=== PATIENT | female | born 1950 | race Caucasian/White ===

== ENCOUNTER → 2017-11-04 | Outpatient (CLI) | payer MEDICARE ==
--- NOTE | 2017-11-04 12:19 | Diagnostic Imaging Report ---
CLINICAL INDICATION: Patient with goiter felt by Doctor. COMPARISONS: None. FINDINGS: THYROID NODULES: There is a 9 mm hypoechoic nodule within the isthmus. This demonstrates no significant central Doppler flow. THYROID GLAND: Besides the thyroid nodule, the thyroid gland parenchyma is heterogeneous with a slightly lobulated appearance. There is normal appearing central Doppler flow involving the thyroid gland. The right lobe measures 4.0 cm x 2.8 cm x 2.0 cm and the left lobe measures 3.9 cm x 1.5 cm x 1.0 cm in their three dimensions. ISTHMUS: The isthmus is unremarkable and measures 4.5 mm in thickness. Impression: 1: There is a 9 mm hypoechoic nodule within the isthmus. 2: Nonspecific heterogeneous and slightly lobulated appearing thyroid gland is seen. Dictated by: Dictated on workstation # [id number]
--- NOTE | 2017-11-04 16:16 | Diagnostic Imaging Report ---
INDICATION: Routine screening. 3D digital tomography, bilateral COMPARISON: The patient's prior mammograms are not available for comparison. TECHNIQUE: Bilateral 3d digital tomographic views were obtained with [employer] and reviewed on a [employer] workstation. In addition, CAD - computer aided detection was utilized. FINDINGS: Both breasts are heterogeneously dense, limiting the sensitivity of mammography. There is a focal asymmetry in the right breast retroareolar region at the nipple line. No corresponding density on the MLO view is seen but additional views are recommended. Left breast is heterogeneous but no discrete mass is seen. There are benign calcifications bilaterally. The axillae are unremarkable. IMPRESSION: ACR BI-RADS Category 0. Incomplete. (Needs additional imaging evaluation). Right breast density. Additional views including spot compression and rolled CC views are recommended for further evaluation. Note: At least 10% of breast cancer is not imaged by mammography. Dictated by: Dictated on workstation # [id number]
== END ==
LOC: RAD 11:07
PROVIDERS: ATTEND Family Medicine
DX: Z12.31 Encounter for screening mammogram for malignant neoplasm of breast (principal); E04.2 Nontoxic multinodular goiter
CPT/HCPCS: 76536; 77067

== ENCOUNTER → 2017-11-23 | Outpatient (CLI) | payer MEDICARE ==
--- NOTE | 2017-11-23 12:16 | Diagnostic Imaging Report ---
INDICATION: Right breast density. The patient presents for additional views. COMPARISON: 11/04/2017. TECHNIQUE: 2D and 3D unilateral right diagnostic mammography was performed including spot compression CC, rolled CC, and 90 degree lateral views. The current study was also evaluated with a Computer Aided Detection (CAD) system. FINDINGS: The additional views fail to demonstrate a discrete mass. The area of density most likely represented superimposed tissue. No suspicious calcifications are seen. IMPRESSION: No suspicious abnormality is identified after additional views. Even so, sonographic interrogation of the retroareolar right breast is recommended for further evaluation. ACR BI-RADS Category 0: Incomplete. (Needs additional imaging evaluation). Result letter will be mailed to the patient. Note: At least 10% of breast cancer is not imaged by mammography. Dictated by: Dictated on workstation # [id number]
--- NOTE | 2017-11-23 12:24 | Diagnostic Imaging Report ---
INDICATION: Right breast density. This study is performed for further evaluation. COMPARISON: Correlation is made with the diagnostic mammogram from earlier the same day. FINDINGS: Sonographic interrogation of the retroareolar right breast was performed. No solid or cystic mass is seen. No sonographic abnormality is identified. IMPRESSION: No sonographic abnormality is seen. The patient may return to routine annual screening mammography. ACR BI-RADS Category 1: Negative. Dictated by: Dictated on workstation # [id number]
== END ==
LOC: RAD 08:34
PROVIDERS: ATTEND Nurse Practitioner Family
DX: R92.2 Inconclusive mammogram (principal)

== ENCOUNTER → 2018-05-22 | Outpatient (CLI) | payer MEDICARE, OTHER ==
--- NOTE | 2018-05-22 11:39 | Diagnostic Imaging Report ---
PROCEDURE: US Thyroid. TECHNIQUE: Multiple real-time grayscale images were obtained of the thyroid in various projections. INDICATION: Thyroid nodule, follow-up. Correlation is made with prior thyroid ultrasound from 11/04/2017. FINDINGS: Right lobe of the thyroid measures 4.0 x 2.2 x 1.8 cm and the left lobe measures 3.2 x 2.2 x 0.8 cm. Both lobes again demonstrate diffuse parenchymal heterogeneity. A circumscribed ovoid nodule in the isthmus appears to be stable approximately 9 mm x 4 mm. Tiny subcentimeter hyperechoic focus in the lower pole right lobe is seen measuring 3-4 mm. This may represent a calcification. Circumscribed hypoechoic nodule in the lower pole left lobe is noted measuring 3-4 mm in size. No dominant mass is identified. IMPRESSION: 1. Stable ovoid nodule in the isthmus of the thyroid since study from 11/04/2017. There are tiny subcentimeter nodules in the lower pole of both lobes as well. No dominant thyroid mass is detected. Dictated by: Dictated on workstation # [id number]
[2018-05-22 12:02] LABS: FREE T4 (FREE THYROXINE) 1.08 NG/DL (0.70-1.48)
== END ==
LOC: RAD 10:32
PROVIDERS: ATTEND Family Medicine
DX: E04.1 Nontoxic single thyroid nodule (principal)
CPT/HCPCS: 36415; 76536; 84439; 84443

== ENCOUNTER → 2019-03-28 | Outpatient (CLI) | payer MEDICARE, OTHER ==
--- NOTE | 2019-03-28 11:32 | Diagnostic Imaging Report ---
INDICATION: Routine screening. COMPARISON: 11/04/2017. TECHNIQUE: 2D and 3D bilateral screening mammography was performed with CAD. FINDINGS: Both breasts are heterogeneously dense, limiting the sensitivity of mammography. The asymmetric density in the retroareolar right breast noted previously is stable. No new mass or malignant appearing microcalcifications are seen. There are benign calcifications noted. The axillae are unremarkable. IMPRESSION: No mammographic features suspicious for malignancy are identified. ACR BI-RADS Category 2: Benign findings. Result letter will be mailed to the patient. Note: At least 10% of breast cancer is not imaged by mammography. Dictated by: Dictated on workstation # [id number]
== END ==
LOC: RAD 09:27
PROVIDERS: ATTEND Nurse Practitioner Family
DX: Z12.31 Encounter for screening mammogram for malignant neoplasm of breast (principal)
CPT/HCPCS: 77067

== ENCOUNTER → 2019-05-30 | Outpatient (CLI) | payer MEDICARE, OTHER ==
--- NOTE | 2019-05-30 09:52 | Diagnostic Imaging Report ---
PROCEDURE: US Thyroid. TECHNIQUE: Multiple real-time grayscale images were obtained of the thyroid in various projections. INDICATION: Thyroid nodule. COMPARISON: Compared 05/22/2018. FINDINGS: Both lobes of the thyroid parenchyma are diffusely heterogeneous. The right lobe measuring 4.5 x 2.3 x 2.2 cm, the left lobe 4.7 x 2.8 x 2.3 cm. A 1 cm isthmic nodule circumscribed, well-defined and hypoechoic showed continued stability. RIGHT LOBE: A solid hypoechoic somewhat lobulated mass in the upper pole of the right lobe is wider than tall and measured 1.6 x 1.9 x 1.1 cm. It showed no appreciable calcifications. It cannot be discretely visualized on the prior but could conceivably have been obscured by the substantial generalized heterogeneity of the gland itself. Within the left lobe, there is a 6 mm subcentimeter well-defined hyperechoic benign nodule unchanged. IMPRESSION: 1. Newly appreciable mass mid to upper pole right lobe laterally is considered a TI-RADS level 4 lesion and as it measures just over 1.5 cm, consideration for sonographic biopsy suggested. This is a moderately suspicious lesion. 2. Additional stable benign-appearing findings noted as well. Dictated by: Dictated on workstation # [id number]
== END ==
LOC: RAD 09:03
PROVIDERS: ATTEND Nurse Practitioner Family
DX: E04.1 Nontoxic single thyroid nodule (principal); R91.8 Other nonspecific abnormal finding of lung field
CPT/HCPCS: 76536

== ENCOUNTER → 2019-06-13 | Outpatient (CLI) | payer MEDICARE, OTHER ==
[~2019-06-13] MED LIST: LIDOCAINE 1% INJ 20 ML 20 ML VIAL INJ ONE
--- NOTE | 2019-06-13 13:03 | Diagnostic Imaging Report ---
INDICATION: Right thyroid nodule. The patient presents for ultrasound-guided fine-needle aspiration. TECHNIQUE: The patient was brought to the procedure room and placed on the bed in the supine position. Ultrasound imaging of the right neck was performed to evaluate for an appropriate entry site. The right neck was then prepped and draped in the usual sterile fashion. A small amount of 1% lidocaine was utilized for local anesthesia. A total of four passes was made through the hypoechoic solid nodule in the upper pole right lobe of the thyroid utilizing 25-gauge needles. Fine-needle aspiration technique was utilized. The needle was removed and hemostasis was obtained using manual compression. The patient tolerated the procedure well and left the Department in stable condition. IMPRESSION: Successful ultrasound-guided fine-needle aspiration of the hypoechoic solid nodule in the upper pole right lobe of the thyroid. Pathology results are currently pending. Dictated by: Dictated on workstation # [id number]
== END ==
LOC: RAD 10:14
PROVIDERS: ATTEND Otolaryngology Otolaryngology/Facial Plastic Surgery
DX: E04.1 Nontoxic single thyroid nodule (principal)
CPT/HCPCS: 88173; 88305

== ENCOUNTER → 2019-11-09 | Outpatient (CLI) | payer MEDICARE, OTHER | LOC: LAB 13:21 | PROVIDERS: ATTEND Nurse Practitioner Family | DX: R05 Cough (principal) | CPT/HCPCS: 36415 ==

== ENCOUNTER → 2021-11-17 | Outpatient (CLI) | payer MEDICARE, OTHER ==
--- NOTE | 2021-11-17 14:16 | Diagnostic Imaging Report ---
INDICATION: 3D bilateral screening mammogram with cad. CAD is utilized. The current study was also evaluated with a Computer Aided Detection (CAD) system. This study was compared to the prior exam of 03/28/2019. At this time there are no current complaints. The current study was also evaluated with a Computer Aided Detection (CAD) system. FINDINGS: The fibroglandular tissue in both breasts is heterogeneously dense. This does limit the sensitivity of this exam. Overall, there does not appear to have been any significant change when compared to the prior study. No primary or secondary sign of malignancy is noted. IMPRESSION: 1. There is no radiographic evidence for malignancy. 2. The patient should have her annual bilateral screening mammogram on schedule in November 2022. ACR BI-RADS Category 1: Negative. Result letter will be mailed to the patient. Note: At least 10% of breast cancer is not imaged by mammography. Dictated by: Dictated on workstation # [id number]
--- NOTE | 2021-11-17 14:20 | Diagnostic Imaging Report ---
INDICATION: Postmenopausal. COMPARISON: None. FINDINGS: The bone mineral density of the spine, the hips, and the femoral necks was measured. There are no prior studies available for comparison. The total T-score for the spine is -2.4. This does suggest borderline osteoporosis. The T-score for the left hip is -1.6 and for the right hip -1.1. The T-score for the left femoral neck is -1.9 and for the right -1.2. These values fall within the range of osteopenia. IMPRESSION: 1. There is borderline osteoporosis of the spine. 2. The bone mineral density of the hips and femoral necks indicates osteopenia. AP Spine L1-L4: [BMD (g/cm2): 0.909] [T-Score: -2.4] [Z-Score: -1.9] [BMD Previous: NA] [BMD % Change: NA] LT Hip Neck: [BMD (g/cm2): 0.733] [T-Score: -1.9] [Z-Score: -1.0] LT Hip Total: [BMD (g/cm2):0.811] [T-Score:-1.6] [Z-Score: -0.9] [BMD Previous: NA] [BMD % Change: NA] RT Hip Neck: [BMD (g/cm2):0.873] [T-Score:-1.2] [Z-Score:-0.3] RT Hip Total: [BMD (g/cm2):0.872] [T-score:-1.1] [Z-Score:-0.5] [BMD Previous:NA] [BMD % Change:NA] *Indicates significant change from prior examination based on 95% confidence level. World Health Organization criteria for BMD interpretation classify patients as Normal (T-score at or above -1.0), Osteopenic (T-score between -1.0 and -2.5) or Osteoporotic (T-score at or below -2.5). LIMITATIONS AND MODIFICATION: None. FRACTURE RISK (FRAX SCORE): The ten year probability of (%): Major Osteoporotic Fracture: [16.0] Hip Fracture: [2.6] IMPRESSION: 1. See below National Osteoporosis Foundation guidelines on when to potentially initiate pharmacologic therapy. Based on the National Osteoporosis Foundation Guidelines, pharmacologic treatment should be initiated in any of the following, unless clinical conditions suggest otherwise: * Any patient with prior fragility fracture of the hip or vertebrae. A spine fracture indicates 5X risk for subsequent spine fracture and 2X risk for subsequent hip fracture. * Osteoporosis (T-score <-2.5). * Postmenopausal women and men age 50 and older with low bone mass/osteopenia (T-score between -1.0 and -2.5) by DXA and 10-year major osteoporotic fracture greater than 20% or a 10-year probability of hip fracture greater than 3%. These fracture risks are supplied above in the FRAX score, if applicable. * Clinician judgement and/or patient preferences may indicate treatment for people with 10-year fracture probabilities above or below these levels. Dictated by: Dictated on workstation # [id number]
== END ==
LOC: RAD 10:00
PROVIDERS: ATTEND Family Medicine
DX: Z12.31 Encounter for screening mammogram for malignant neoplasm of breast (principal); Z78.0 Asymptomatic menopausal state; M81.0 Age-related osteoporosis without current pathological fracture
CPT/HCPCS: 77063; 77067; 77080

== ENCOUNTER 2022-08-28 21:59 | Emergency (ER) | payer MEDICARE, OTHER ==
[~2022-08-28] VITALS: Ht 165.1 cm; Wt 99.7 kg
--- NOTE | 2022-08-28 22:22 | ED Syncope ---
General Stated Complaint: SYNCOPAL EPISODE Source of Information: Patient Exam Limitations: No Limitations History of Present Illness Date Seen by Provider: Aug 28, 2022 Time Seen by Provider: 22:08 Initial Comments Patient is a 72yo female who presents to the ER with a complaint of syncopal episode. She had been out a dinner with her and a girlfriend, sitting at a high top table for a couple of hours without any support of her feet. She had had a large meal and a couple of glasses of wine (which she is unused to). She started feeling clammy and a little nauseated, looked at her and stated she felt dizzy and apparently slumped over. He and her friend caught her, she did not fall from the stool. She states she was out very briefly and when she came round - she vomited. She denied chest pain, headache, SOB. SHe has had some URI symptoms the last few days and started amoxicillin yesterday (500mg TID) for a left OM. She states she feels a little "off" still. She did mention to YONAS Malik (her ED nurse) prior to my seeing her that at one point she had a little left shoulder discomfort (no longer present). Only PMH is thyroid disorder. Non smoker. No personal history of CAD. Timing/Prior Episodes: Single Episode Today Symptoms Prior to Episode: Confusion, Lightheadedness, Nausea Precipitating Factors: Sitting Loss of Consciousness: Brief (Seconds) Current Symptoms: Back to Normal, Diaphoresis, Dizziness, Nausea (vomited) Allergies and Home Medications Allergies Coded Allergies: codeine (Unverified Allergy, Unknown, 11/17/21) Patient Home Medication List Home Medication List Reviewed: Yes Review of Systems Constitutional: see HPI EENTM: ear pain (left) Respiratory: no symptoms reported Cardiovascular: syncope Gastrointestinal: nausea, vomiting Genitourinary: no symptoms reported Musculoskeletal: no symptoms reported Skin: no symptoms reported Psychiatric/Neurological: Denies Headache, Denies Paresthesia, Denies Seizure All Other Systems Reviewed Negative Unless Noted: Yes Physical Exam Vital Signs Vital Signs - First Documented 08/28/22 22:01 Temp 36.5 Pulse 88 Resp 16 B/P (MAP) 166/74 (104) Pulse Ox 100 O2 Delivery Room Air Capillary Refill : Height, Weight, BMI Height: '" Weight: lbs. oz. kg; BMI Method: General Appearance: No Apparent Distress, WD/WN, Obese (mildly) HEENT: PERRL/EOMI, Pharynx Normal, Other (left ear canal erythematous - TM appears normal; RT TM normal) Neck: Full Range of Motion, Normal Inspection, Supple Cardiovascular: Regular Rate, Rhythm, Normal Peripheral Pulses Respiratory: Lungs Clear, Normal Breath Sounds, No Accessory Muscle Use, No Respiratory Distress Gastrointestinal: Non Tender, Soft Extremities: Normal Capillary Refill, Normal Inspection, Normal Range of Motion, No Pedal Edema Neurologic/Psychiatric: Alert, Oriented x3, No Motor/Sensory Deficits, Normal 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, 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 Norm as 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; No Abnormal Cerebellar Tests; Other (neg [place], No pronator drift; normal F-N) Cranial Nerves: Normal Hearing, Normal Speech, PERRL Coordination/Gait: Normal Finger to Nose, Negative Romberg's Sign Motor/Sensory: No Motor Deficit, No Sensory Deficit, No Pronator Drift Skin: Normal Color, Warm/Dry Progress/Results/Core Measures Results/Orders Lab Results Laboratory Tests Test 08/28/22 22:08 08/28/22 22:27 Range/Units White Blood Count 11.1 H 4.3-11.0 10^3/uL Red Blood Count 4.65 3.80-5.11 10^6/uL Hemoglobin 13.8 11.5-16.0 g/dL Hematocrit 42 35-52 % Mean Corpuscular Volume 90 80-99 fL Mean Corpuscular Hemoglobin 30 25-34 pg Mean Corpuscular Hemoglobin Concent 33 32-36 g/dL Red Cell Distribution Width 13.8 10.0-14.5 % Platelet Count 276 130-400 10^3/uL Mean Platelet Volume 11.1 9.0-12.2 fL Immature Granulocyte % (Auto) 1 % Neutrophils (%) (Auto) 57 42-75 % Lymphocytes (%) (Auto) 34 12-44 % Monocytes (%) (Auto) 8 0-12 % Eosinophils (%) (Auto) 1 0-10 % Basophils (%) (Auto) 0 0-10 % Neutrophils # (Auto) 6.3 1.8-7.8 10^3/uL Lymphocytes # (Auto) 3.7 1.0-4.0 10^3/uL Monocytes # (Auto) 0.8 0.0-1.0 10^3/uL Eosinophils # (Auto) 0.1 0.0-0.3 10^3/uL Basophils # (Auto) 0.0 0.0-0.1 10^3/uL Immature Granulocyte # (Auto) 0.1 0.0-0.1 10^3/uL Sodium Level 140 135-145 MMOL/L Potassium Level 3.4 L 3.6-5.0 MMOL/L Chloride Level 106 98-107 MMOL/L Carbon Dioxide Level 21 21-32 MMOL/L Anion Gap 13 5-14 MMOL/L Blood Urea Nitrogen 16 7-18 MG/DL Creatinine 0.77 0.60-1.30 MG/DL Estimat Glomerular Filtration Rate 83 BUN/Creatinine Ratio 21 Glucose Level 174 H 70-105 MG/DL Calcium Level 8.9 8.5-10.1 MG/DL Magnesium Level 1.8 1.6-2.4 MG/DL Troponin I < 0.028 <0.028 NG/ML SARS-CoV-2 RNA (RT-PCR) Not Detected Not Detecte My Orders Orders - ZULEIMA ZUNIGA MD Ed Iv/Invasive Line Start (08/28/22 22:15) Cbc With Automated Diff (08/28/22 22:15) Basic Metabolic Panel (08/28/22 22:15) Magnesium (08/28/22 22:15) Troponin I [place] (08/28/22 22:15) Chest 1 View, Ap/Pa Only (08/28/22 22:15) Covid 19 Inhouse Test (08/28/22 22:15) Isolation Central Supply Req (08/28/22 22:15) Ekg Tracing (08/28/22 22:15) Vital Signs/I&O 08/28/22 22:01 Temp 36.5 Pulse 88 Resp 16 B/P (MAP) 166/74 (104) Pulse Ox 100 O2 Delivery Room Air Progress Progress Note : Time: 23:19 Progress Note Patient seen and evaluated, 72-year-old with syncope. Evaluation today includes physical exam, CBC, chemistry, mag, troponin, EKG and chest x-ray. On physical exam the patient is awake alert, oriented no acute distress. Nonfocal neurologic exam. Heart is regular, lungs are clear. She has recently been treated for left-sided otitis, the canal itself is a little erythematous but the tympanic membrane looks good, no effusion or distention of the tympanic membrane. No submandibular or infra-auricular lymphadenopathy. No significant lower extremity edema. She does have the occasional PVC on telemetry. EKG is normal sinus rhythm at 86 beats a minute with no ST segment elevation or depression or interval concerns. Differential diagnosis based on history and physical, vasovagal syncope, arrhythmia, dehydration. Labs are reviewed, CBC is normal, chemistry shows mildly elevated blood sugar otherwise normal. Troponin undetectable magnesium within normal range. Chest x-ray no focal infiltrates or mediastinal concerns. Patient has been monitored throughout her stay here in the emergency department. Her daughter is the nurse practitioner for Dr. Guerin. She will follow up on Tuesday as an outpatient for a ZIO patch, echo and stress. Initial ECG Impression Date: Aug 28, 2022 Initial ECG Impression Time: 22:26 Initial ECG Rate: 86 Initial ECG Rhythm: Normal Sinus Initial ECG Intervals VA 169 QRS 93 QTc 472 Comment no ectopy; no ST elevation or depression; Diagnostic Imaging Diagonstic Imaging: Xray Plain Films/CT/US/NM/MRI: chest Comments CXR - interpreted by me - no infiltrate or effusion; normal mediastinal structures Departure Impression Primary Impression: Syncope Qualified Codes: R55 - Syncope and collapse Disposition: 01 HOME, SELF-CARE Condition: Improved Departure-Patient Inst. Decision time for Depature: 23:34 Referrals: JANIYA PINO MD (PCP/Family) Primary Care Physician SHEBA GUERIN MD Patient Instructions: Syncope (Fainting) (DC) Add. Discharge Instructions: Continue your routine daily medications. Drink plenty of water to stay well hydrated. If you have any symptoms of dizziness with palpitations or irregular heartbeat or any other other concerning symptoms, please come back to the Emergency Department for re-evaluation. Please follow up with Dr Guerin's office on Tuesday. Copy Copies To 1: JANIYA PINO MD Copies To 2: SHEBA GUERIN MD, KATHRYN M MD Aug 28, 2022 22:22
[2022-08-28 22:25] LABS: BASOPHILS % (AUTO) 0 % (0-10); EOSINOPHILS # (AUTO) 0.1 10^3/uL (0.0-0.3); EOSINOPHILS % (AUTO) 1 % (0-10); HEMATOCRIT 42 % (35-52); HEMOGLOBIN 13.8 g/dL (11.5-16.0); LYMPHOCYTES # (AUTO) 3.7 10^3/uL (1.0-4.0); LYMPHOCYTES % (AUTO) 34 % (12-44); MEAN CORPUSCULAR HEMOGLOBIN 30 pg (25-34); MEAN CORPUSCULAR HGB CONC 33 g/dL (32-36); MEAN CORPUSCULAR VOLUME 90 fL (80-99); MEAN PLATELET VOLUME 11.1 fL (9.0-12.2); MONOCYTES # (AUTO) 0.8 10^3/uL (0.0-1.0); MONOCYTES % (AUTO) 8 % (0-12); NEUTROPHILS # (AUTO) 6.3 10^3/uL (1.8-7.8); NEUTROPHILS % (AUTO) 57 % (42-75); PLATELET COUNT 276 10^3/uL (130-400); WHITE BLOOD COUNT 11.1 10^3/uL (4.3-11.0)
[2022-08-28 22:29] LABS: CHLORIDE 106 MMOL/L (98-107); POTASSIUM 3.4 MMOL/L (3.6-5.0); SODIUM 140 MMOL/L (135-145)
[2022-08-28 22:30] LABS: CALCIUM 8.9 MG/DL (8.5-10.1); GLUCOSE 174 MG/DL (70-105)
[2022-08-28 22:32] LABS: CARBON DIOXIDE 21 MMOL/L (21-32)
[2022-08-28 22:34] LABS: CREATININE SERUM 0.77 MG/DL (0.60-1.30); GFR ESTIMATED 83
[2022-08-28 22:35] LABS: BUN/CREATININE RATIO 21
[2022-08-28 22:37] LABS: MAGNESIUM 1.8 MG/DL (1.6-2.4)
[2022-08-28 23:48] VITALS: BP 147/80
--- NOTE | 2022-08-29 08:07 | Diagnostic Imaging Report ---
INDICATION: Syncope COMPARISON: None available TECHNIQUE: Single radiograph of the chest dated 08/28/2022. FINDINGS: The cardiac silhouette is at the upper limits of normal in size. No significant pulmonary vascular congestion. The lungs are clear of focal pulmonary opacity. No pleural effusion. No pneumothorax. No acute osseous abnormality. IMPRESSION: Cardiac silhouette is at the upper limits of normal in size. Otherwise, unremarkable examination without acute cardiopulmonary abnormality. Dictated by: Dictated on workstation # [id number]
== END 2022-08-28 23:48 | disposition home or self-care (01) ==
LOC: EDUNIT# 21:59 → ER 22:01
DX: R55 Syncope and collapse (principal); E66.9 Obesity, unspecified; Z68.36 Body mass index [BMI] 36.0-36.9, adult; Z20.822 Contact with and (suspected) exposure to COVID-19
CPT/HCPCS: 36415; 71045; 80048; 83735; 84484; 85025; 87636; 93005

== ENCOUNTER → 2022-09-01 | Outpatient (CLI) | payer MEDICARE, OTHER ==
[~2022-09-01] VITALS: Ht 165 cm; Wt 101.0 kg
[~2022-09-01] MED LIST changes: +CATHETER FLUSH 10 ML SYR IVP PRN; -LIDOCAINE 1% INJ 20 ML 20 ML VIAL INJ ONE
[2022-09-01 07:55] VITALS: BP 142/82
--- NOTE | 2022-09-01 13:56 | Cardiology Stress Test Report ---
Stress Test Report Date of Procedure/Referring: Date of Procedure: Sep 01, 2022 PCP Janiya Brumfield MD Admitting Physician Admitting Physician: Attending Physician: Loree Koo Indications: syncope Baseline Heart Rate: 70 Baseline Blood Pressure: Blood Pressure Systolic: 142 Blood Pressure Diastolic: 82 Vital Signs Date Time Temp Pulse Resp B/P (MAP) Pulse Ox O2 Delivery O2 Flow Rate FiO2 09/01/22 07:55 70 142/82 (102) Baseline Vital Signs Vital Signs Date Time Temp Pulse Resp B/P (MAP) Pulse Ox O2 Delivery O2 Flow Rate FiO2 09/01/22 07:55 70 142/82 (102) Baseline EKG: Baseline EKG: NSR Summary: After explaining the procedure and details to the patient, she signed the consent and was brought to the stress nuclear laboratory. Patient exercised on standard Duy protocol, EKG, heart rate and blood pressure were monitored continuously, resting and stress doses of radio tracer were injected, imaging was acquired and reviewed in the short axis, horizontal long axis and vertical long axis views Patient was able to exercise for a total of 6 minutes on Duy protocol, METs 7.3 Maximum heart rate 160 Maximum blood pressure 153/93 Stress EKG, Minimal nondiagnostic changes Recovery EKG, Return to baseline TID: 0.97 SSS: 1 SDS: 1 EF: 64 Conclusion: Good exercise tolerance for 6 minutes on standard Duy protocol, 7.3 METS achieving 100% of maximal expected heart rate Appropriate heart rate and blood pressure response to exercise return to baseline during recovery No ischemia or infarction noted on SPECT images Normal left ventricular size, ejection fraction 64% Copy Copies To 1: JANIYA BRUMFIELD MD, BASHAR J MD Sep 01, 2022 13:56
== END ==
LOC: CARD 07:00
PROVIDERS: ATTEND Physician Assistant
DX: I10 Essential (primary) hypertension (principal)
CPT/HCPCS: 78452; 93017; A9502; C8929; 93306

== ENCOUNTER → 2023-05-18 | Outpatient (CLI) | payer MEDICARE, OTHER ==
--- NOTE | 2023-05-18 22:25 | Diagnostic Imaging Report ---
INDICATION: Routine screening Comparison is made with prior mammogram from 11/17/2021 and 03/28/2019. 2-D and 3-D bilateral screening mammography was performed with CAD. Both breasts are heterogeneously dense, limiting the sensitivity of mammography. The fibronodular parenchymal pattern is stable. No dominant mass or malignant-appearing microcalcifications are seen. There are benign calcifications bilaterally. The axillae are unremarkable. IMPRESSION: No mammographic features suspicious for malignancy are identified. ACR BI-RADS Category 2: Benign findings. Result letter will be mailed to the patient. Note: At least 10% of breast cancer is not imaged by mammography. BI-RADS Category 2 Dictated on workstation # [id number]
== END ==
LOC: RAD 09:30
PROVIDERS: ATTEND Nurse Practitioner Family
DX: Z12.31 Encounter for screening mammogram for malignant neoplasm of breast (principal)
CPT/HCPCS: 77063; 77067